=== PATIENT | male | born 1985 | race Caucasian/White ===

== ENCOUNTER 2017-02-06 16:17 | Emergency (ER) ==
--- NOTE | 2017-02-06 19:35 | PROVIDER DOCUMENTATION ---
HPI-General Adult - General Chief Complaint: Abscess Stated Complaint: ABD PAIN/MALE Time Seen by Provider: 02/06/17 17:39 Source: patient Allergies/Adverse Reactions: Patient Allergies Allergy/AdvReac Type Severity Reaction Status Date / Time No Known Allergies Allergy Verified 11/01/16 10:31 Home Medications: Home Medication List Medication Instructions Recorded Confirmed Last Taken Type Amoxicillin/Pot Clavulanate 875 mg PO Q12HR #14 tablet 11/01/16 Unknown Rx [Augmentin] Ciproflox/Dexameth Otic Susp 4 drop RIGHT EAR BID #1 bottle 11/01/16 Unknown Rx [Ciprodex Otic Suspension] Tramadol [Ultram] 50 mg PO Q8HR #7 tablet 11/01/16 Unknown Rx Hydrocortisone 2.5% Cream 1 applicatn [place] BID #1 tube 02/06/17 Unknown Rx [Anusol-Hc Cream] - History of Present Illness -Gen Adult Nature of Presenting Problems: This pt presents today c complaints of "Knot" in his R groin and a "bump" on his rectum for the past few weeks. He states that the 'knot' seems to come and go but doesn't really hurt. He reports that the area on his rectum does cause pain and occasionally when he wipes around it he notices a little bit of blood on the tissue. No other issues or complaints. Location of Pain/Injury: reports: other (see hpi) Quality of Pain: reports: aching Severity: reports: mild Onset/Duration: reports: other (see hpi) Timing: reports: still present Associated Symptoms: reports: denies symptoms Similar Symptoms Previously?: No Recently seen or treated by another doctor?: No Review of Systems - Adult - REVIEW OF SYSTEMS - ADULT Constitutional: reports: no symptoms reported. denies: chills, fever Eyes: reports: no symptoms reported. denies: discharge, dry eyes Ears, Nose, Mouth & Throat: reports: no symptoms reported. denies: ear discharge, ear pain Cardiovascular: reports: no symptoms reported. denies: chest pain, edema Respiratory: reports: no symptoms reported. denies: chronic cough, cough Gastrointestinal: reports: see HPI Genitourinary: reports: see HPI. denies: dysuria, discharge Musculoskeletal: reports: no symptoms reported. denies: bone pain, back pain Integumentary: reports: no symptoms reported. denies: hives, hair loss Neurological: reports: no symptoms reported. denies: ataxia, dizziness/vertigo Psychiatric: reports: no symptoms reported. denies: anxiety, anti-depressant use Endocrine: reports: no symptoms reported Hematologic/Lymphatic: reports: no symptoms reported Allergic/Immunologic: reports: no symptoms reported All Other Systems: Reviewed and Negative Past History - Adult - PAST MEDICAL HISTORY-ADULT Review of Records: reports: Old Records Reviewed, Nursing Assessment Review, Medications Reviewed, Social history reviewed & non-contributory. Major Childhood Illnesses: reports: denies history Cardiovascular: reports: denies history Respiratory: reports: denies history Gastrointestinal: reports: denies history Obstetrical/Gynecological: reports: denies history Genitourinary: reports: denies history Musculoskeletal: reports: denies history Neurological: reports: denies history Endocrine/Immune: reports: denies history Other Conditions: reports: denies history Physical Exam-General - PHYSICAL EXAM-ADULT Initial Vital Signs Reviewed: Yes - CONSTITUTIONAL General Appearance: appears well, alert, no apparent distress - EYES Eyes: PERRL/EOMI, pink conjunctivae - HEAD, EARS, NOSE, MOUTH & THROAT HENMT: normocephalic/atraumatic, moist mucous membranes, normal ENT inspection - NECK Neck: non-tender, full range of motion, supple, normal inspection - RESPIRATORY Respiratory: chest non-tender, lungs clear, normal breath sounds, no pleuratic chest pain, no respiratory distress, no accessory muscle use. negative: respiratory distress, decreased breath sounds, accessory muscle use - CARDIOVASCULAR Cardiovascular: normal peripheral pulses, regular rate, rhythm - GASTROINTESTINAL (ABDOMEN) Abdominal Exam: normal bowel sounds, non tender, soft, hernia (R inguinal, small , reducible) - GENITOURINARY Rectal Exam: hemorrhoids - MUSCULOSKELETAL Back Exam: normal inspection, no CVA tenderness, no vertebral tenderness - SKIN Integumentary: normal color, normal turgor, warm/dry - NEUROLOGIC Neurologic: grossly normal, no motor/sensory deficits. negative: facial droop, focal weakness, motor weakness, sensory deficit Progress - PLAN OF CARE/RESULTS Progress/Plan/Lab Results: Vital Signs Temp Pulse Resp BP Pulse Ox 02/06/17 16:38 97.9 F 95 H 18 156/78 97 No Known Allergies Allergy (Verified 11/01/16 10:31) Amoxicillin/Pot Clavulanate [Augmentin] 875 mg PO Q12HR #14 tablet 11/01/16 Ciproflox/Dexameth Otic Susp [Ciprodex Otic Suspension] 4 drop RIGHT EAR BID #1 bottle 11/01/16 Tramadol [Ultram] 50 mg PO Q8HR #7 tablet 11/01/16 Will have pt f/u c surgery. He is in agreement. Departure - Departure Time of Disposition Order: 19:35 DIAGNOSIS: Hemorrhoidal skin tag Inguinal hernia Qualifiers: Obstruction and gangrene presence: without obstruction or gangrene Laterality: unilateral Recurrence: non-recurrent Qualified Code(s): K40.90 - Unilateral inguinal hernia, without obstruction or gangrene, not specified as recurrent Disposition: HOME 01 Certified Medical Emergency: Emergent Condition: Good Additional Instructions: Take medication as prescribed. Follow up with a surgeon. ED Follow Up Instructions: You have been treated by a care provider in the Emergency Department. These instructions are being provided to you so you can have an understanding of how to care for yourself upon discharge. Upon discharge from the Emergency Department, you are responsible for making arrangements for follow-up care by a physician of your choice. Take all prescribed medications as directed. Return to the Emergency Department immediately for any new or worsening symptoms. You may call the Physician Referral phone number at [phone] to obtain a list of Physicians who are taking new patients. Prescriptions: Hydrocortisone 2.5% Cream [Anusol-Hc Cream] 1 applicatn [place] BID #1 tube Referrals: None,PCP [Primary Care Provider] - Bolivar Caraballo MD [STAFF PHYSICIAN] - Attestation - Physician/ MAJO Attestation Patient care was provided by Advanced Practice Provider:: Yes Advanced Practice Provider:: Gabe Louis Advanced Practice Provider documentation review:: The Mid-level provider documentation, treatment plan and medical decision making was reviewed by the physician who agrees with all treatment and medical decision making by the [facility].
[2017-02-06 19:47] VITALS: BP 143/91
== END 2017-02-06 20:00 | disposition home or self-care (01) ==
LOC: ED 16:17
DX: K40.90 Unilateral inguinal hernia, without obstruction or gangrene, not specified as recurrent (principal); K64.4 Residual hemorrhoidal skin tags; R19.03 Right lower quadrant abdominal swelling, mass and lump; K62.89 Other specified diseases of anus and rectum